=== PATIENT | male | born 1940 | race Caucasian/White ===

== ENCOUNTER 2017-10-30 09:00 | Outpatient (RCR) | payer MEDICARE, OTHER | END 2017-11-02 | LOC: PT 09:00 | PROVIDERS: ATTEND Specialist | DX: M25.562 Pain in left knee (principal); M17.12 Unilateral primary osteoarthritis, left knee; M25.662 Stiffness of left knee, not elsewhere classified; M62.81 Muscle weakness (generalized) | CPT/HCPCS: 97110 ×11; 97139; 97161; G8978 ×2; G8979 ×2 ==